=== PATIENT | male | born 1985 | race African-American/Black ===

== ENCOUNTER 2021-10-31 00:57 | Emergency (ER) | payer MEDICAID, SELFPAY ==
[2021-10-31] MEDS ORDERED: VANCOMYCIN 2 GRAM/500 ML BAG 2 GM in Premix Bag 1 BAG IVPB SCH (02:45)
[2021-10-31] MEDS ORDERED: Cefepime 2 GM VIAL ONE (03:00)
[2021-10-31 03:12] LABS: ALT (SGPT) 85 U/L (8-55); AST (SGOT) 58 U/L (5-34); Alkaline Phosphatase 68 U/L (40-110); Anion Gap 21 mmol/L (10-20); BUN (Urea Nitrogen) 24 mg/dL (8.9-20.6); Calc. Creatinine Clearance 0 mL/min (70-130); Calcium 8.4 mg/dL (7.8-10.44); Carbon Dioxide 19 mmol/L (22-29); Chloride 100 mmol/L (98-107); Estimated GFR 46; Globulin 3.6 g/dL (2.4-3.5); Glucose 174 mg/dL (70-105); Potassium 3.7 mmol/L (3.5-5.1); Protein, Total 6.6 g/dL (6.0-8.3); Sodium 136 mmol/L (136-145)
[2021-10-31 03:45] LABS: Bilirubin Negative (Negative); Blood, Urine 1+ (Negative); Calcium Oxalate Crystals Rare HPF (None Seen); Clarity Turbid (Clear); Glucose, Urine (Dipstick) Normal (Negative); Ketone, Urine Negative (Negative); Leukocyte Negative Leu/uL (Negative); Nitrite Negative (Negative); Protein, Urine (Dipstick) 100 mg/dL (Neg-Trace); Specific Gravity, Urine 1.018 (1.002-1.036); Squamous Epithelial 0-3 HPF (0-3); Urobilinogen Normal mg/dL (Less than 2); pH, Urine 5.5 (5.0-9.0)
[2021-10-31 03:55] LABS: Bacteria/HPF 1+ HPF (None Seen)
[2021-10-31 04:14] LABS: Hemoglobin 3.6 g/dL (14.0-18.0); Mean Corpuscular HGB CONC 30.3 g/dL (32.0-36.0); Mean Corpuscular Hemoglobin 28.2 pg (27.0-31.0); Mean Corpuscular Volume 93.2 fL (78.0-98.0); Platelet Count 8 thou/uL (130-400); Red Blood Cell (RBC) Count 1.28 mill/uL (4.70-6.10)
[2021-10-31 04:44] LABS: Band 1 % (5-11); Differential Comment Immature Cell(s); MDiff Complete? YES; Monocytes 1 % (0-10); Neutrophil 1 % (42-75); Reflex for Review?? YES
[2021-10-31] MEDS ORDERED: Acetaminophen 500 MG TAB ONE (06:20)
[2021-10-31 06:43] LABS: Lymphocytes 47 % (21-51)
[2021-10-31 07:20] LABS: SARS-CoV-2 NAA Rapid Test Not Detected (NotDetected)
[2021-10-31 08:34] LABS: Lactic Acid 1.7 mmol/L (0.5-2.2)
[2021-10-31 09:50] LABS: Magnesium 2.3 mg/dL (1.6-2.6); Phosphorus 3.8 mg/dL (2.3-4.7)
[2021-10-31] MEDS ORDERED: Iopamidol-370 76% 500 ML 1 ML ONE (15:15)
== END 2021-10-31 10:21 | disposition short-term general hospital (02) ==
LOC: ERS 01:58
DX: A41.9 Sepsis, unspecified organism (principal); C95.90 Leukemia, unspecified not having achieved remission; I10 Essential (primary) hypertension; Z20.822 Contact with and (suspected) exposure to COVID-19; Z79.899 Other long term (current) drug therapy
CPT/HCPCS: 36415; 36430; 71045; 71260; 80053; 81003; 81015; 83605; 83615; 83735; 84100; 85025; 85060; 86850; 86900; 86901; 87040; 87077; 87086; 87149; 87186; 93005; 96365; 96366; 96368; J0692; J3370; P9016; P9035; Q9967; U0002

== ENCOUNTER 2022-01-21 23:51 | Inpatient (IN) | payer SELFPAY ==
[2022-01-22] MEDS ORDERED: Ondansetron PF 4 MG/2 ML Vial ONE (00:08)
[2022-01-22] MEDS ORDERED: Promethazine HCl 25 MG in Sodium Chloride 0.9% 100 ML IVPB SCH (00:30)
[2022-01-22 01:11] LABS: ALT (SGPT) 20 U/L (8-55); AST (SGOT) 75 U/L (5-34); Albumin 3.6 g/dL (3.5-5.0); Alkaline Phosphatase 194 U/L (40-110); Anion Gap 28 mmol/L (10-20); BUN (Urea Nitrogen) 11 mg/dL (8.9-20.6); CK (CPK) 79 U/L (30-200); Calc. Creatinine Clearance 0 mL/min (70-130); Calcium 9.7 mg/dL (7.8-10.44); Carbon Dioxide 13 mmol/L (22-29); Chloride 103 mmol/L (98-107); Estimated GFR 79; Globulin 2.6 g/dL (2.4-3.5); Glucose 209 mg/dL (70-105); Lipase 15 U/L (8-78); Magnesium 1.4 mg/dL (1.6-2.6); Potassium 4.3 mmol/L (3.5-5.1); Protein, Total 6.2 g/dL (6.0-8.3); Sodium 140 mmol/L (136-145)
[2022-01-22 01:33] LABS: Hemoglobin 5.1 g/dL (14.0-18.0); Red Blood Cell (RBC) Count 2.57 mill/uL (4.70-6.10)
[2022-01-22 01:34] LABS: Mean Corpuscular HGB CONC 18.3 g/dL (32.0-36.0); Mean Corpuscular Volume 108.9 fL (78.0-98.0); RBC Distribution Width 22.2 % (11.5-14.5)
[2022-01-22 01:35] LABS: Mean Platelet Volume 7.6 fL (7.4-10.4); Platelet Count 11 thou/uL (130-400)
[2022-01-22 01:48] LABS: CKMB 0.6 ng/mL (0-6.6); Differential Comment Blast-Like Cell(s); Hypochromia SLIGHT = 6-15 cells (100X) (0-5/hpf); Macrocytosis SLIGHT = 6-15 cells (100X) (0-5/hpf); Platelet Morphology Comment Appears Decreased
[2022-01-22 01:49] LABS: Monocytes 1 % (0-10); Nucleated RBC 2 % (0)
[2022-01-22] MEDS ORDERED: Piperacillin/Tazobactam 4.5 GM VIAL ONE (02:07)
[2022-01-22 02:40] LABS: Fibrinogen 177 mg/dL (253-463)
[2022-01-22 02:41] LABS: INR-International Normal Ratio 2.1; PTT 36.5 sec (22.9-36.1); Prothrombin Time 23.8 sec (12.0-14.7)
[2022-01-22 02:42] LABS: D-Dimer Test 3.08 *mcg/mL (0.27-0.43)
[2022-01-22 02:46] LABS: Platelet Count 21 thou/uL (130-400)
[2022-01-22 02:57] LABS: Bacteria/HPF None Seen HPF (None Seen); Bilirubin Negative (Negative); Blood, Urine Trace (Negative); Clarity Turbid (Clear); Glucose, Urine (Dipstick) Normal (Negative); Ketone, Urine 10 mg/dL (Negative); Leukocyte Negative Leu/uL (Negative); Nitrite Negative (Negative); Protein, Urine (Dipstick) 50 mg/dL (Neg-Trace); RBC/HPF 0-3 HPF (0-3); Specific Gravity, Urine 1.017 (1.002-1.036); Squamous Epithelial 0-3 HPF (0-3); Urobilinogen 3 mg/dL (Less than 2); pH, Urine 5.5 (5.0-9.0)
[2022-01-22] MEDS ORDERED: Rasburicase 3 MG in Sodium Chloride 0.9% 50 ML IVPB SCH (03:45)
[2022-01-22 04:15] LABS: Actual Bicarbonate (HCO3v) 16 mEq/L (22-28); Analyzer IN Cardio ER; Base Excess -9.6 mEq/L (-2.0 to +3.0); Calcium, Ionized (venous) 1.07 mmol/L (1.16-1.32); Chloride (VBG) 104 mmol/L (98-106); Hemoglobin (Hb) 2.7 g/dL (13.2-17.3); Potassium (VBG) 6.53 mmol/L (3.70-5.30); Sodium 137.7 mmol/L (133-146); pH (venous) 7.32 (7.32-7.43)
[2022-01-22] MEDS ORDERED: Rocuronium Bromide 10 MG/ML (10ML VIAL) ONE (04:28)
[2022-01-22 04:34] LABS: Lactic Acid 12.1 mmol/L (0.5-2.2)
[2022-01-22] MEDS ORDERED: Fentanyl 100 MCG/2 ML VIAL ONE (04:39)
[2022-01-22 04:50] LABS: Actual Bicarbonate (HCO3a) 15.5 mEq/L (22-28); Analyzer IN Cardio ER; Base Excess (BEa) -11.8 mEq/L (-2.0 to +3.0); CO2 Tension 43.3 mmHg (35.0-45.0); Carboxyhemoglobin (COHb) 0.1 gm% (0.0-3.0); Potassium - ABG Lab 3.94 mmol/L (3.70-5.30)
[2022-01-22 04:51] LABS: Hemoglobin (Hb) 5.5 g/dL (14.0-18.0); pH, Arterial 7.17 (7.35-7.45)
[2022-01-22 04:52] LABS: Puncture Site LRA
[2022-01-22] MEDS ORDERED: Fentanyl CADD 100 ML IV SCH (05:15)
[2022-01-22 05:48] LABS: Actual Bicarbonate (HCO3a) 18.4 mEq/L (22-28); Analyzer IN Cardio ER; Base Excess (BEa) -7.4 mEq/L (-2.0 to +3.0); CO2 Tension 39.6 mmHg (35.0-45.0); Calcium, Ionized (arterial) 1.13 mmol/L (1.12-1.30); Potassium - ABG Lab 5.74 mmol/L (3.70-5.30); pH, Arterial 7.29 (7.35-7.45)
[2022-01-22 05:50] LABS: Hemoglobin (Hb) 2.7 g/dL (14.0-18.0); Puncture Site LBA
[2022-01-22 05:57] LABS: SARS-CoV-2 NAA Rapid Test Not Detected (NotDetected)
[2022-01-22] MEDS ORDERED: Ondansetron PF 4 MG/2 ML Vial IVP PRN (07:37)
[2022-01-22] MEDS ORDERED: Acetaminophen 650 MG Suppository PR PRN (07:37)
[2022-01-22 07:42] VITALS: BP 159/81
[2022-01-22] MEDS ORDERED: Morphine 4 MG/ML VIAL SLOW IVP PRN (08:17)
[2022-01-22 09:21] VITALS: TEMP 99.6
== END 2022-01-22 11:23 | disposition expired | DRG 64 ==
LOC: ERS 23:51 → CCU 01-22 07:25
PROVIDERS: ADMIT Internal Medicine; ATTEND Internal Medicine
PROC: 0BH17EZ Insertion of Endotracheal Airway into Trachea, Via Natural or Artificial Opening (ICD-10-PCS; principal; 2022-01-22)
PROC: 5A1935Z Respiratory Ventilation, Less than 24 Consecutive Hours (ICD-10-PCS; 2022-01-22)
PROC: 0T9B70Z Drainage of Bladder with Drainage Device, Via Natural or Artificial Opening (ICD-10-PCS; 2022-01-22)
PROC: 0D9670Z Drainage of Stomach with Drainage Device, Via Natural or Artificial Opening (ICD-10-PCS; 2022-01-22)
DX: I61.4 Nontraumatic intracerebral hemorrhage in cerebellum (principal); D65 Disseminated intravascular coagulation [defibrination syndrome]; J96.90 Respiratory failure, unspecified, unspecified whether with hypoxia or hypercapnia; C91.00 Acute lymphoblastic leukemia not having achieved remission; E87.20 Acidosis, unspecified; Z66 Do not resuscitate; Z20.822 Contact with and (suspected) exposure to COVID-19; I10 Essential (primary) hypertension; D64.9 Anemia, unspecified; E87.5 Hyperkalemia; R77.8 Other specified abnormalities of plasma proteins; I95.9 Hypotension, unspecified; Z28.311 Partially vaccinated for COVID-19; Z78.1 Physical restraint status
CPT/HCPCS: 36415; 36416; 36600; 70450; 71045; 74177; 80053; 81003; 81015; 82550; 82553; 82805; 83605; 83690; 83735; 84484; 84550; 85025; 85049; 85060; 85300; 85362; 85379; 85384; 85610; 85730; 86850; 86900; 86901; 87040; 93005; 94002; J2405; J2543; J2550; J2783; J3010; J3490; U0002